=== PATIENT | female | born 1985 | race Caucasian/White ===

== ENCOUNTER 2016-04-11 15:21 | Emergency (ER) | payer MEDICAID ==
[2016-04-11 16:44] LABS: ALBUMIN 3.2 g/dL (3.4-5.0); ALKALINE PHOSPHATASE 58 U/L (46-116); ALT (SGPT) 16 U/L (10-68); BILIRUBIN - TOTAL 0.94 mg/dL (0.2-1.3); CALC OSMOLALITY 278 mosm/kg (275-300); CALCIUM 8.9 mg/dL (8.5-10.1); CARBON DIOXIDE 24.6 mmol/L (21.0-32.0); CHLORIDE - SERUM 105 mmol/L (98-107); CREATININE - SERUM 0.8 mg/dL (0.6-1.3); GLUCOSE 81 mg/dL (74-106); POTASSIUM - SERUM 3.2 mmol/L (3.5-5.1); PROTEIN - SERUM 6.8 g/dL (6.4-8.2); SODIUM 141 mmol/L (136-145); UREA NITROGEN 11 mg/dL (7-18); eGFR NON AFRICAN AMERICAN 90 mL/min (90-120)
[2016-04-11 17:07] LABS: UDS - AMPHET POSITIVE QUAL (NEGATIVE); UDS - BARB NEGATIVE QUAL (NEGATIVE); UDS - BENZO POSITIVE QUAL (NEGATIVE); UDS - COCAINE POSITIVE QUAL (NEGATIVE); UDS - METH NEGATIVE QUAL (NEGATIVE); UDS - OPIATE NEGATIVE QUAL (NEGATIVE); UDS - PCP NEGATIVE QUAL (NEGATIVE); UDS - THC POSITIVE QUAL (NEGATIVE)
[2016-04-12 05:49] LABS: BASOPHILS 0.6 % (0.0-2.0); EOSINOPHILS 2.9 % (0-7); HEMATOCRIT 33.6 % (36.0-48.0); HEMOGLOBIN 10.2 g/dL (12-16); IMMATURE GRANULOCYTES 0.3 % (0-5); LYMPHOCYTES 27.4 % (15-50); MCH 26.8 pg (26.0-34.0); MCHC 30.4 g/dL (31.0-37.0); MCV 88.4 fL (80.0-100.0); MEAN PLATELET VOLUME 10.1 fL (7.4-10.4); MONOCYTES 13.8 % (2-11); RDW 14.9 % (11.5-14.5); WBC 3.4 10x3/uL (4.8-10.8)
[2016-04-12 05:53] LABS: PLATELET COUNT 230 10x3/uL (130-400)
[2016-04-12 06:00] LABS: HCG SERUM NEGATIVE (NEGATIVE)
== END 2016-04-12 06:40 | disposition home or self-care (01) ==
LOC: D.ER 15:21
PROVIDERS: Emergency Medicine; Physician Assistant Medical
DX: F41.9 Anxiety disorder, unspecified (principal); F15.10 Other stimulant abuse, uncomplicated; F14.10 Cocaine abuse, uncomplicated; F12.19 Cannabis abuse with unspecified cannabis-induced disorder; F13.10 Sedative, hypnotic or anxiolytic abuse, uncomplicated

== ENCOUNTER 2016-04-28 14:25 | Emergency (ER) | payer MEDICAID ==
[2016-04-28 15:19] LABS: HCG URINE NEGATIVE (NEGATIVE)
[2016-04-28 15:20] LABS: BASOPHILS 0.3 % (0.0-2.0); EOSINOPHILS 0.4 % (0-7); HEMATOCRIT 34.2 % (36.0-48.0); HEMOGLOBIN 11.2 g/dL (12-16); IMMATURE GRANULOCYTES 0.1 % (0-5); LYMPHOCYTES 14.4 % (15-50); MCH 27.1 pg (26.0-34.0); MCHC 32.7 g/dL (31.0-37.0); MCV 82.6 fL (80.0-100.0); MEAN PLATELET VOLUME 10.1 fL (7.4-10.4); MONOCYTES 6.5 % (2-11); NEUTROPHILS 78.3 % (40-80); PLATELET COUNT 187 10x3/uL (130-400); RBC 4.14 10x6/uL (4.00-5.40); RDW 13.9 % (11.5-14.5); WBC 7.2 10x3/uL (4.8-10.8)
[2016-04-28 15:20] LABS: APPEARANCE CLEAR (CLEAR); BILIRUBIN NEGATIVE (NEGATIVE); COLOR YELLOW (YELLOW); GLUCOSE NEGATIVE (NEGATIVE); KETONE NEGATIVE (NEGATIVE); LEUKOCYTE ESTERASE TRACE (NEGATIVE); NITRITE NEGATIVE (NEGATIVE); PROTEIN TRACE mg/dL (NEGATIVE); UROBILINOGEN NORMAL (NORMAL)
[2016-04-28 15:23] LABS: BACTERIA FEW /hpf (NONE SEEN); EPITHELIAL CELLS 0-5 /hpf (0-5); GRANULAR CAST RARE /lpf (NONE SEEN); HYALINE CAST OCC /lpf (NONE SEEN); MUCUS <1+ /lpf (NONE SEEN); RED CELLS - URINE OCC /hpf (0-5); WHITE CELLS - URINE 0-5 /hpf (0-5)
[2016-04-28 15:31] LABS: ALBUMIN 3.9 g/dL (3.4-5.0); ALKALINE PHOSPHATASE 71 U/L (46-116); ALT (SGPT) 19 U/L (10-68); BILIRUBIN - TOTAL 0.98 mg/dL (0.2-1.3); CALC OSMOLALITY 289 mosm/kg (275-300); CALCIUM 9.1 mg/dL (8.5-10.1); CARBON DIOXIDE 23.9 mmol/L (21.0-32.0); CHLORIDE - SERUM 107 mmol/L (98-107); CREATININE - SERUM 0.8 mg/dL (0.6-1.3); GLUCOSE 83 mg/dL (74-106); POTASSIUM - SERUM 3.6 mmol/L (3.5-5.1); PROTEIN - SERUM 7.3 g/dL (6.4-8.2); SODIUM 144 mmol/L (136-145); UREA NITROGEN 23 mg/dL (7-18); eGFR NON AFRICAN AMERICAN 90 mL/min (90-120)
[2016-04-28 15:32] LABS: UDS - AMPHET POSITIVE QUAL (NEGATIVE); UDS - BARB NEGATIVE QUAL (NEGATIVE); UDS - BENZO NEGATIVE QUAL (NEGATIVE); UDS - COCAINE POSITIVE QUAL (NEGATIVE); UDS - METH NEGATIVE QUAL (NEGATIVE); UDS - OPIATE NEGATIVE QUAL (NEGATIVE); UDS - PCP NEGATIVE QUAL (NEGATIVE); UDS - THC POSITIVE QUAL (NEGATIVE)
== END 2016-04-29 01:20 | disposition short-term general hospital (02) ==
LOC: D.ER 14:25
PROVIDERS: Family Medicine
DX: F33.9 Major depressive disorder, recurrent, unspecified (principal); R45.851 Suicidal ideations; F15.10 Other stimulant abuse, uncomplicated; F14.10 Cocaine abuse, uncomplicated; F12.10 Cannabis abuse, uncomplicated

== ENCOUNTER 2016-05-05 15:39 | Emergency (ER) | payer MEDICAID ==
[2016-05-05 16:31] LABS: ALBUMIN 4.2 g/dL (3.4-5.0); ALKALINE PHOSPHATASE 68 U/L (46-116); ALT (SGPT) 22 U/L (10-68); BILIRUBIN - TOTAL 1.33 mg/dL (0.2-1.3); CALC OSMOLALITY 280 mosm/kg (275-300); CALCIUM 9.1 mg/dL (8.5-10.1); CARBON DIOXIDE 29.9 mmol/L (21.0-32.0); CHLORIDE - SERUM 102 mmol/L (98-107); CREATININE - SERUM 0.9 mg/dL (0.6-1.3); GLUCOSE 83 mg/dL (74-106); PROTEIN - SERUM 8.3 g/dL (6.4-8.2); SODIUM 141 mmol/L (136-145); UREA NITROGEN 16 mg/dL (7-18); eGFR NON AFRICAN AMERICAN 79 mL/min (90-120)
== END 2016-05-05 21:19 | disposition home or self-care (01) ==
LOC: D.ER 15:39
PROVIDERS: Emergency Medicine
DX: F41.9 Anxiety disorder, unspecified (principal); F23 Brief psychotic disorder; F14.10 Cocaine abuse, uncomplicated; F15.10 Other stimulant abuse, uncomplicated; F11.10 Opioid abuse, uncomplicated; F12.10 Cannabis abuse, uncomplicated; F32.9 Major depressive disorder, single episode, unspecified

== ENCOUNTER 2016-08-10 18:07 | Emergency (ER) | payer MEDICAID ==
[2016-08-10 19:14] LABS: EOSINOPHILS 1.7 % (0-7); HEMATOCRIT 36.3 % (36.0-48.0); HEMOGLOBIN 11.8 g/dL (12-16); IMMATURE GRANULOCYTES 0.2 % (0-5); LYMPHOCYTES 31.9 % (15-50); MCH 26.5 pg (26.0-34.0); MCHC 32.5 g/dL (31.0-37.0); MCV 81.6 fL (80.0-100.0); MEAN PLATELET VOLUME 9.3 fL (7.4-10.4); NEUTROPHILS 53.2 % (40-80); PLATELET COUNT 200 10x3/uL (130-400); RBC 4.45 10x6/uL (4.00-5.40); RDW 15.1 % (11.5-14.5); WBC 5.8 10x3/uL (4.8-10.8)
[2016-08-10 19:36] LABS: ALBUMIN 4.4 g/dL (3.4-5.0); ALKALINE PHOSPHATASE 69 U/L (46-116); ALT (SGPT) 23 U/L (10-68); BILIRUBIN - TOTAL 2.11 mg/dL (0.2-1.3); CALC OSMOLALITY 274 mosm/kg (275-300); CALCIUM 9.5 mg/dL (8.5-10.1); CARBON DIOXIDE 25.7 mmol/L (21.0-32.0); CHLORIDE - SERUM 101 mmol/L (98-107); CREATININE - SERUM 0.8 mg/dL (0.6-1.3); GLUCOSE 79 mg/dL (74-106); POTASSIUM - SERUM 3.7 mmol/L (3.5-5.1); PROTEIN - SERUM 8.1 g/dL (6.4-8.2); SODIUM 138 mmol/L (136-145); UREA NITROGEN 12 mg/dL (7-18); eGFR NON AFRICAN AMERICAN 90 mL/min (90-120)
[2016-08-10 20:50] LABS: HCG SERUM NEGATIVE (NEGATIVE)
[2016-08-10 21:26] LABS: APPEARANCE CLEAR (CLEAR); COLOR YELLOW (YELLOW)
[2016-08-10 21:27] LABS: BILIRUBIN NEGATIVE (NEGATIVE); GLUCOSE NEGATIVE (NEGATIVE); KETONE NEGATIVE (NEGATIVE); LEUKOCYTE ESTERASE NEGATIVE (NEGATIVE); NITRITE NEGATIVE (NEGATIVE); PROTEIN NEGATIVE (NEGATIVE); SPECIFIC GRAVITY 1.015 (1.005-1.020); UDS - AMPHET POSITIVE QUAL (NEGATIVE); UDS - BARB NEGATIVE QUAL (NEGATIVE); UDS - BENZO NEGATIVE QUAL (NEGATIVE); UDS - COCAINE POSITIVE QUAL (NEGATIVE); UDS - METH NEGATIVE QUAL (NEGATIVE); UDS - OPIATE NEGATIVE QUAL (NEGATIVE); UDS - PCP NEGATIVE QUAL (NEGATIVE); UDS - THC POSITIVE QUAL (NEGATIVE); UROBILINOGEN NORMAL (NORMAL)
== END 2016-08-11 09:44 | disposition home or self-care (01) ==
LOC: D.ER 18:07
PROVIDERS: Emergency Medicine; Nurse Practitioner Acute Care
DX: F23 Brief psychotic disorder (principal); F15.10 Other stimulant abuse, uncomplicated; F12.10 Cannabis abuse, uncomplicated; F14.10 Cocaine abuse, uncomplicated

== ENCOUNTER 2016-10-26 09:45 | Emergency (ER) | payer MEDICAID ==
[2016-10-26 23:22] LABS: BASOPHILS 0.7 % (0-2); HEMATOCRIT 31.9 % (36.0-48.0); HEMOGLOBIN 10.5 g/dL (12-16); LYMPHOCYTES 37.5 % (15-50); MCHC 32.9 g/dL (31.0-37.0); MEAN PLATELET VOLUME 9.6 fL (7.4-10.4); MONOCYTES 12.7 % (2-11); NEUTROPHILS 46.1 % (40-80); PLATELET COUNT 167 10x3/uL (130-400); RBC 3.89 10x6/uL (4.00-5.40)
[2016-10-26 23:37] LABS: ALBUMIN 3.1 g/dL (3.4-5.0); ALKALINE PHOSPHATASE 58 U/L (46-116); ALT (SGPT) 17 U/L (10-68); CALC OSMOLALITY 282 mosm/kg (275-300); CALCIUM 8.4 mg/dL (8.5-10.1); CARBON DIOXIDE 25.3 mmol/L (21.0-32.0); CHLORIDE - SERUM 107 mmol/L (98-107); CREATININE - SERUM 0.7 mg/dL (0.6-1.3); GLUCOSE 82 mg/dL (74-106); POTASSIUM - SERUM 3.6 mmol/L (3.5-5.1); PROTEIN - SERUM 6.4 g/dL (6.4-8.2); SODIUM 143 mmol/L (136-145); UREA NITROGEN 10 mg/dL (7-18); eGFR NON AFRICAN AMERICAN > 90 mL/min (90-120)
[2016-10-27 00:27] LABS: HCG URINE NEGATIVE (NEGATIVE)
[2016-10-27 00:35] LABS: APPEARANCE CLEAR (CLEAR); BILIRUBIN NEGATIVE (NEGATIVE); COLOR DK YELLOW (YELLOW); GLUCOSE NEGATIVE (NEGATIVE); KETONE SMALL mg/dL (NEGATIVE); LEUKOCYTE ESTERASE 1+ (NEGATIVE); NITRITE NEGATIVE (NEGATIVE); PROTEIN TRACE mg/dL (NEGATIVE); SPECIFIC GRAVITY 1.025 (1.005-1.020); UROBILINOGEN NORMAL (NORMAL)
[2016-10-27 00:37] LABS: BACTERIA FEW /hpf (NONE SEEN); EPITHELIAL CELLS 0-5 /hpf (0-5); RED CELLS - URINE 0-5 /hpf (0-5)
[2016-10-27 00:40] LABS: UDS - AMPHET POSITIVE QUAL (NEGATIVE); UDS - BARB NEGATIVE QUAL (NEGATIVE); UDS - BENZO NEGATIVE QUAL (NEGATIVE); UDS - COCAINE NEGATIVE QUAL (NEGATIVE); UDS - METH NEGATIVE QUAL (NEGATIVE); UDS - OPIATE NEGATIVE QUAL (NEGATIVE); UDS - PCP NEGATIVE QUAL (NEGATIVE); UDS - THC POSITIVE QUAL (NEGATIVE)
== END 2016-10-27 09:45 | disposition home or self-care (01) ==
LOC: D.ER 09:45
PROVIDERS: Nurse Practitioner Family
DX: F15.10 Other stimulant abuse, uncomplicated (principal); R41.82 Altered mental status, unspecified; F22 Delusional disorders

== ENCOUNTER 2017-04-15 02:43 | Emergency (ER) | payer MEDICAID ==
[2017-04-15 03:01] LABS: BASOPHILS 0.3 % (0-2); EOSINOPHILS 1.2 % (0-7); HEMATOCRIT 33.9 % (36.0-48.0); HEMOGLOBIN 10.9 g/dL (12-16); LYMPHOCYTES 22.1 % (15-50); MCH 27.3 pg (26.0-34.0); MCHC 32.2 g/dL (31.0-37.0); MEAN PLATELET VOLUME 9.7 fL (7.4-10.4); MONOCYTES 15.3 % (2-11); NEUTROPHILS 61.1 % (40-80); PLATELET COUNT 203 10x3/uL (130-400); RBC 3.99 10x6/uL (4.00-5.40); RDW 14.3 % (11.5-14.5)
[2017-04-15 03:13] LABS: HCG SERUM NEGATIVE (NEGATIVE)
[2017-04-15 03:15] LABS: ALBUMIN 4.2 g/dL (3.4-5.0); ALKALINE PHOSPHATASE 73 U/L (46-116); ALT (SGPT) 18 U/L (10-68); BILIRUBIN - TOTAL 1.47 mg/dL (0.2-1.3); CALC OSMOLALITY 286 mosm/kg (275-300); CALCIUM 9.1 mg/dL (8.5-10.1); CARBON DIOXIDE 27.9 mmol/L (21.0-32.0); CHLORIDE - SERUM 104 mmol/L (98-107); CREATININE - SERUM 0.7 mg/dL (0.6-1.3); GLUCOSE 90 mg/dL (74-106); POTASSIUM - SERUM 3.6 mmol/L (3.5-5.1); SODIUM 142 mmol/L (136-145); UREA NITROGEN 23 mg/dL (7-18); eGFR NON AFRICAN AMERICAN > 90 mL/min (90-120)
[2017-04-15 04:06] LABS: APPEARANCE HAZY (CLEAR); BILIRUBIN NEGATIVE (NEGATIVE); COLOR YELLOW (YELLOW); GLUCOSE NEGATIVE (NEGATIVE); KETONE SMALL mg/dL (NEGATIVE); NITRITE NEGATIVE (NEGATIVE); PROTEIN NEGATIVE (NEGATIVE); SPECIFIC GRAVITY 1.025 (1.005-1.020); UROBILINOGEN NORMAL (NORMAL)
[2017-04-15 04:10] LABS: UDS - AMPHET POSITIVE QUAL (NEGATIVE); UDS - BARB NEGATIVE QUAL (NEGATIVE); UDS - BENZO NEGATIVE QUAL (NEGATIVE); UDS - COCAINE NEGATIVE QUAL (NEGATIVE); UDS - OPIATE NEGATIVE QUAL (NEGATIVE); UDS - PCP NEGATIVE QUAL (NEGATIVE); UDS - THC POSITIVE QUAL (NEGATIVE)
== END 2017-04-15 11:00 | disposition home or self-care (01) ==
LOC: D.ER 02:43
PROVIDERS: Emergency Medicine
DX: F15.159 Other stimulant abuse with stimulant-induced psychotic disorder, unspecified (principal); F17.200 Nicotine dependence, unspecified, uncomplicated

== ENCOUNTER 2017-11-09 16:51 | Emergency (ER) | payer MEDICAID ==
[~2017-11-09] VITALS: Ht 162.6 cm; Wt 68.2 kg
[2017-11-09 17:41] VITALS: Ht 162.6 cm; Wt 68.2 kg
[2017-11-09 20:14] VITALS: BP 103/56
== END 2017-11-09 20:04 | disposition home or self-care (01) ==
LOC: D.ER 16:51
DX: Z03.89 Encounter for observation for other suspected diseases and conditions ruled out (principal)

== ENCOUNTER 2018-01-03 18:41 | Emergency (ER) | payer MEDICAID ==
[~2018-01-03] VITALS: Ht 162.6 cm; Wt 65.9 kg
[2018-01-03 18:42] VITALS: Ht 162.6 cm; Wt 65.9 kg
[2018-01-03 19:13] LABS: BASOPHILS 0.2 % (0-2); EOSINOPHILS 0.5 % (0-7); HEMATOCRIT 31.8 % (36.0-48.0); HEMOGLOBIN 10.3 g/dL (12-16); IMMATURE GRANULOCYTES 0.2 % (0-5); LYMPHOCYTES 7.5 % (15-50); MCH 25.9 pg (26.0-34.0); MCHC 32.4 g/dL (31.0-37.0); MCV 80.1 fL (80.0-100.0); MEAN PLATELET VOLUME 9.3 fL (7.4-10.4); MONOCYTES 6.8 % (2-11); NEUTROPHILS 84.8 % (40-80); PLATELET COUNT 204 10x3/uL (130-400); RBC 3.97 10x6/uL (4.00-5.40); RDW 14.8 % (11.5-14.5); WBC 10.4 10x3/uL (4.8-10.8)
[2018-01-03 19:28] LABS: ALBUMIN 3.7 g/dL (3.4-5.0); ALKALINE PHOSPHATASE 57 U/L (46-116); ALT (SGPT) 25 U/L (10-68); BILIRUBIN - TOTAL 1.37 mg/dL (0.2-1.3); CALC OSMOLALITY 278 mosm/kg (275-300); CALCIUM 8.7 mg/dL (8.5-10.1); CHLORIDE - SERUM 103 mmol/L (98-107); POTASSIUM - SERUM 3.7 mmol/L (3.5-5.1); PROTEIN - SERUM 7.1 g/dL (6.4-8.2); SODIUM 140 mmol/L (136-145); UREA NITROGEN 18 mg/dL (7-18); eGFR NON AFRICAN AMERICAN 69 mL/min (90-120)
[2018-01-03 19:30] LABS: GLUCOSE 63 mg/dL (74-106)
[2018-01-03 19:49] LABS: CREATINE KINASE 526 UL (21-215); LIPASE 75 U/L (73-393); MAGNESIUM - SERUM 1.6 mg/dL (1.8-2.4)
[2018-01-03 19:51] LABS: CKMB 10.4 U/L (0.0-3.6)
[2018-01-03 20:11] LABS: HCG URINE NEGATIVE (NEGATIVE)
[2018-01-03 20:12] LABS: APPEARANCE CLEAR (CLEAR); BILIRUBIN NEGATIVE (NEGATIVE); COLOR YELLOW (YELLOW); GLUCOSE NEGATIVE (NEGATIVE); KETONE SMALL mg/dL (NEGATIVE); NITRITE NEGATIVE (NEGATIVE); PROTEIN NEGATIVE (NEGATIVE); SPECIFIC GRAVITY 1.025 (1.005-1.020); UROBILINOGEN NORMAL (NORMAL)
[2018-01-03 20:13] LABS: BACTERIA NONE SEEN /hpf (NONE SEEN); EPITHELIAL CELLS NSEEN /hpf (0-5); RED CELLS - URINE NONE SEEN /hpf (0-5); WHITE CELLS - URINE NSEEN /hpf (0-5)
[2018-01-03 20:18] LABS: UDS - AMPHET POSITIVE QUAL (NEGATIVE); UDS - BARB NEGATIVE QUAL (NEGATIVE); UDS - BENZO POSITIVE QUAL (NEGATIVE); UDS - COCAINE POSITIVE QUAL (NEGATIVE); UDS - OPIATE POSITIVE QUAL (NEGATIVE); UDS - PCP NEGATIVE QUAL (NEGATIVE); UDS - THC POSITIVE QUAL (NEGATIVE)
[2018-01-04 06:10] VITALS: BP 90/47
== END 2018-01-04 06:11 | disposition home or self-care (01) ==
LOC: D.ER 18:41
PROVIDERS: Family Medicine
DX: R41.82 Altered mental status, unspecified (principal); D64.9 Anemia, unspecified; E83.42 Hypomagnesemia; F19.10 Other psychoactive substance abuse, uncomplicated

== ENCOUNTER 2019-01-10 01:44 | Emergency (ER) | payer MEDICAID ==
[~2019-01-10] VITALS: Ht 162.6 cm; Wt 52.3 kg
[2019-01-10 01:51] VITALS: Ht 162.6 cm; Wt 52.3 kg
[2019-01-10 01:58] LABS: BASOPHILS 0.2 % (0-2); EOSINOPHILS 0.1 % (0-7); HEMATOCRIT 35.4 % (36.0-48.0); HEMOGLOBIN 11.7 g/dL (12-16); IMMATURE GRANULOCYTES 0.1 % (0-5); LYMPHOCYTES 6.7 % (15-50); MCH 27.2 pg (26.0-34.0); MCHC 33.1 g/dL (31.0-37.0); MCV 82.3 fL (80.0-100.0); MEAN PLATELET VOLUME 9.5 fL (7.4-10.4); NEUTROPHILS 89.9 % (40-80); RDW 15.1 % (11.5-14.5); WBC 10.3 10x3/uL (4.8-10.8)
[2019-01-10 01:59] LABS: PLATELET COUNT 289 10x3/uL (130-400)
[2019-01-10 02:11] LABS: ANION GAP 17.6 mmol/L (8-16); CALCIUM 9.2 mg/dL (8.5-10.1); CARBON DIOXIDE 24.9 mmol/L (21.0-32.0); CREATININE - SERUM 1.4 mg/dL (0.6-1.3); POTASSIUM - SERUM 3.5 mmol/L (3.5-5.1)
[2019-01-10 02:18] LABS: ALBUMIN 4.1 g/dL (3.4-5.0); BILIRUBIN - TOTAL 1.4 mg/dL (0.2-1.3); MAGNESIUM - SERUM 1.6 mg/dL (1.8-2.4); PROTEIN - SERUM 8.1 g/dL (6.4-8.2)
[2019-01-10 10:28] VITALS: BP 140/98
[2019-02-25 07:59] VITALS: Ht 162.6 cm; Wt 52.3 kg
== END 2019-01-10 10:29 | disposition home or self-care (01) ==
LOC: D.ER 01:44
PROVIDERS: Family Medicine
DX: F15.929 Other stimulant use, unspecified with intoxication, unspecified (principal)

== ENCOUNTER 2019-02-24 20:25 | Observation (INO) | payer MEDICAID ==
[~2019-02-24] VITALS: Ht 162.6 cm; Wt 59.1 kg
[2019-02-24 20:44] LABS: BASOPHILS 0.5 % (0-2); EOSINOPHILS 1.3 % (0-7); HEMATOCRIT 31.4 % (36.0-48.0); HEMOGLOBIN 10.1 g/dL (12-16); IMMATURE GRANULOCYTES 0.2 % (0-5); LYMPHOCYTES 22.5 % (15-50); MCHC 32.2 g/dL (31.0-37.0); MCV 80.9 fL (80.0-100.0); MEAN PLATELET VOLUME 8.8 fL (7.4-10.4); NEUTROPHILS 68.5 % (40-80); PLATELET COUNT 275 10x3/uL (130-400); RBC 3.88 10x6/uL (4.00-5.40); RDW 15.6 % (11.5-14.5)
[2019-02-24 20:46] LABS: APPEARANCE SL CLDY (CLEAR); BILIRUBIN NEGATIVE (NEGATIVE); COLOR YELLOW (YELLOW); GLUCOSE NEGATIVE (NEGATIVE); KETONE NEGATIVE (NEGATIVE); NITRITE NEGATIVE (NEGATIVE); PROTEIN 1+ mg/dL (NEGATIVE); UROBILINOGEN NORMAL (NORMAL)
[2019-02-24 20:48] LABS: BACTERIA MODERATE /hpf (NEGATIVE); EPITHELIAL CELLS 0-5 /hpf (0-5); RED CELLS - URINE 0-5 /hpf (0-5); WHITE CELLS - URINE >50 /hpf (NEGATIVE)
[2019-02-24 20:49] LABS: HCG URINE NEGATIVE (NEGATIVE)
[2019-02-24 20:54] LABS: CALC OSMOLALITY 283 mosm/kg (275-300); CALCIUM 9.3 mg/dL (8.5-10.1); CHLORIDE - SERUM 104 mmol/L (98-107); CREATININE - SERUM 0.9 mg/dL (0.6-1.3); GLUCOSE 85 mg/dL (74-106); POTASSIUM - SERUM 3.2 mmol/L (3.5-5.1); SODIUM 141 mmol/L (136-145); UREA NITROGEN 25 mg/dL (7-18); eGFR NON AFRICAN AMERICAN 77 mL/min (90-120)
[2019-02-24 20:58] LABS: ALBUMIN 3.9 g/dL (3.4-5.0); ALKALINE PHOSPHATASE 68 U/L (46-116); ALT (SGPT) 22 U/L (10-68); BILIRUBIN - TOTAL 1.35 mg/dL (0.2-1.3); PROTEIN - SERUM 7.7 g/dL (6.4-8.2)
[2019-02-24 20:59] LABS: UDS - AMPHET POSITIVE QUAL (NEGATIVE); UDS - BARB NEGATIVE QUAL (NEGATIVE); UDS - BENZO NEGATIVE QUAL (NEGATIVE); UDS - COCAINE NEGATIVE QUAL (NEGATIVE); UDS - OPIATE NEGATIVE QUAL (NEGATIVE); UDS - PCP NEGATIVE QUAL (NEGATIVE); UDS - THC POSITIVE QUAL (NEGATIVE)
--- NOTE | 2019-02-24 22:20 | NUR ---
RECEIVED PATIENT TO ICU ROOM 2304 FROM ED VIA BED ACCOMPANIED BY [facility] STAFF. ASSISTED TO ICU BED. ASSESSMENT COMPLETED AT THIS TIME WITH NO ACUTE DISTRESS OBSERVED. PATIENT SEDATED. ROUSES TO TACTILE STIMULI. DISORIENTEDX 4. SPEECH GARBLED/SLURRED ANSWERING QUESTIONS INAPPROPRIATELY. MONITORS CONNECTED TO PATIENT WITH ALARMS SET. VSS. BED ALARM TURNED ON AND FUNCTIONING.
[2019-02-24 22:30] VITALS: BP 99/51
[2019-02-24 23:00] VITALS: BP 98/61
--- NOTE | 2019-02-24 23:00 | NUR ---
UNABLE TO PERFORM SRS SCREENING DUE TO PATIENTS ALTERED MENTAL STATUS AT THIS TIME.
[2019-02-25] VITALS (11 sets, daily range): BP systolic 86–108; BP diastolic 51–74; Ht 162.6 cm; Wt 59.1 kg
--- NOTE | 2019-02-25 | NUR ---
PATIENT RESTING WITH EYES CLOSED, ROUSES TO TACTILE STIMULI. VSS
--- NOTE | 2019-02-25 02:20 | NUR ---
BED ALARM SOUNDING. PT UP OUT OF BED. MORE ALERT. STAND BY ASSIST REQUIRED. USED BEDSIDE COMMODE. PO FLUIDS GIVEN PER PT REQUEST. ORIENTED ONLY TO SELF AT THIS TIME. VSS. ASSISSTED BACK TO BED. BED ALARM TURNED ON.
--- NOTE | 2019-02-25 03:00 | NUR ---
REASSESSMENT COMPLETED PER FLOW SHEET WITH NO ACUTE DISTRESS OBSERVED. VSS
--- NOTE | 2019-02-25 05:00 | NUR ---
RESTING WITH EYES CLOSED, ROUSES TO VERBAL/TACTILE STIMULI. VSS
--- NOTE | 2019-02-25 13:46 | NUR ---
0830-PT AWAKE AND ASSISTED PT WITH BREAKFEST TRAY-GREATER THAN MODERATE AGITATION-STATES TIRED NEED TO SLEEP-ENCOURAGED TO DO SAME-NOTED SR ON MONITOR 1000-PT ASLEEP RESPIRATION EVEN 1230-DR HAMPTON AT BEDSIDE AND SPOKE WITH PT-STATED ABLE TO DISCHARGE-PT STATED STATED TO SLEEPY-LUNCH TRAY TAKEN-L PERIPHERAL IV D/C'D-LUNCH TRAY TAKEN- 1300-REMAINS ON MONITOR SR SLEEPING
--- NOTE | 2019-02-25 15:50 | NUR ---
PREFERRED PHARMACY CONFIRMED BY PT DICKSON KUMAR JESSIEJESSICA.
[2019-02-25] MEDS ORDERED: BACTRIM 400-801 TAB PO (16:00)
--- NOTE | 2019-02-25 16:03 | NUR ---
NOTED ORDERS TO TRANSFER PT HOME AT THIS TIME PER DR HAMPTON.
--- NOTE | 2019-02-25 17:48 | NUR ---
1715-PT REAWAAKENED IN ROOM AND REMINDED DISCHARGE-MADE NO EFFORT TO CALL FOR RIDE-CASE MANAGEMENT KANA NOTIFIED -UP TO TALK WITH PT REGARDING OPTIONS-PT NOT WILLING -DINNER TRAY TAKEN-NURSING SENIOR LOGISTICS MANAGER NOTIFED OF ISSUE-PT STATES HOMELESS-DIRECTED TO PROVIDE LIST OF HOMELESS ALF-ESCORTED PT TO ER ADMISSION DESK -[facility] CALLED FOR PT AND LIST GIVEN-
== END 2019-02-25 17:53 | disposition home or self-care (01) ==
LOC: D.ER 20:25 → D.ICU 20:51 → D.ER 20:51 → OBSVTIME 20:51 → D.ICU 02-25 17:53 → OBSVTIME 02-25 20:51
PROVIDERS: Emergency Medicine; ADMIT Internal Medicine Nephrology; ATTEND Internal Medicine Nephrology
DX: G92 Toxic encephalopathy (principal); F15.90 Other stimulant use, unspecified, uncomplicated; N39.0 Urinary tract infection, site not specified; N17.9 Acute kidney failure, unspecified; D50.9 Iron deficiency anemia, unspecified; F17.203 Nicotine dependence unspecified, with withdrawal; E87.6 Hypokalemia

== ENCOUNTER 2019-07-02 16:50 | Emergency (ER) | payer MEDICAID ==
[~2019-07-02] VITALS: Ht 162.6 cm; Wt 63.6 kg
[~2019-07-02 16:50] MED LIST: BACTRIM 400-801 TAB PO
[2019-07-02 17:01] VITALS: Ht 162.6 cm; Wt 63.6 kg
[2019-07-02 17:53] LABS: EOSINOPHILS 4.3 % (0-7); HEMATOCRIT 39.2 % (36.0-48.0); HEMOGLOBIN 12.6 g/dL (12-16); IMMATURE GRANULOCYTES 0.1 % (0-5); LYMPHOCYTES 28.1 % (15-50); MCH 27.3 pg (26.0-34.0); MCHC 32.1 g/dL (31.0-37.0); MEAN PLATELET VOLUME 9.7 fL (7.4-10.4); MONOCYTES 10.2 % (2-11); NEUTROPHILS 56.3 % (40-80); PLATELET COUNT 303 10x3/uL (130-400); RBC 4.61 10x6/uL (4.00-5.40); RDW 16.9 % (11.5-14.5); WBC 6.8 10x3/uL (4.8-10.8)
[2019-07-02 18:00] LABS: ANION GAP 14.8 mmol/L (8-16); CALCIUM 9.3 mg/dL (8.5-10.1); CARBON DIOXIDE 27.9 mmol/L (21.0-32.0); POTASSIUM - SERUM 3.7 mmol/L (3.5-5.1)
[2019-07-02 18:01] LABS: UDS - AMPHET POSITIVE QUAL (NEGATIVE); UDS - BARB NEGATIVE QUAL (NEGATIVE); UDS - BENZO NEGATIVE QUAL (NEGATIVE); UDS - COCAINE NEGATIVE QUAL (NEGATIVE); UDS - OPIATE NEGATIVE QUAL (NEGATIVE); UDS - PCP NEGATIVE QUAL (NEGATIVE); UDS - THC NEGATIVE QUAL (NEGATIVE)
[2019-07-02 18:13] LABS: ACETAMINOPHEN 62.9 ug/mL (10.0-30.0); ALBUMIN 4.4 g/dL (3.4-5.0); BILIRUBIN - TOTAL 0.63 mg/dL (0.2-1.3); MAGNESIUM - SERUM 2.2 mg/dL (1.8-2.4); PROTEIN - SERUM 8.8 g/dL (6.4-8.2)
[2019-07-02 18:19] LABS: HCG URINE NEGATIVE (NEGATIVE)
[2019-07-02 18:19] LABS: BILIRUBIN NEGATIVE (NEGATIVE); GLUCOSE NEGATIVE (NEGATIVE); KETONE NEGATIVE (NEGATIVE); NITRITE NEGATIVE (NEGATIVE); SPECIFIC GRAVITY 1.025 (1.005-1.020); UROBILINOGEN NORMAL (NORMAL)
[2019-07-02 18:20] LABS: EPITHELIAL CELLS 0-5 /hpf (0-5); RED CELLS - URINE 0-5 /hpf (0-5); WHITE CELLS - URINE 0-5 /hpf (NEGATIVE)
[2019-07-02 18:21] LABS: BACTERIA MANY /hpf (NEGATIVE)
[2019-07-02 19:21] VITALS: BP 115/78
== END 2019-07-02 19:21 | disposition home or self-care (01) ==
LOC: D.ER 16:50
PROVIDERS: Family Medicine
DX: F41.9 Anxiety disorder, unspecified (principal); F15.10 Other stimulant abuse, uncomplicated; R44.0 Auditory hallucinations; R44.1 Visual hallucinations

== ENCOUNTER 2019-07-23 17:22 | Emergency (ER) | payer MEDICAID ==
[~2019-07-23] VITALS: Ht 162.6 cm; Wt 62.3 kg
[2019-07-23 17:48] VITALS: BP 150/70; Ht 162.6 cm; Wt 62.3 kg
== END 2019-07-23 20:07 | disposition left against medical advice (07) ==
LOC: D.ER 17:22
DX: R52 Pain, unspecified (principal)

== ENCOUNTER 2019-07-23 22:38 | Emergency (ER) | payer MEDICAID ==
[~2019-07-23] VITALS: Ht 162.6 cm; Wt 54.5 kg
[2019-07-23 23:19] VITALS: Ht 162.6 cm; Wt 54.5 kg
[2019-07-24 03:21] VITALS: BP 122/88
== END 2019-07-24 03:25 | disposition home or self-care (01) ==
LOC: D.ER 22:38
DX: M54.2 Cervicalgia (principal); S90.829A Blister (nonthermal), unspecified foot, initial encounter; F15.10 Other stimulant abuse, uncomplicated; S10.96XA Insect bite of unspecified part of neck, initial encounter; X58.XXXA Exposure to other specified factors, initial encounter

== ENCOUNTER 2019-09-03 19:56 | Observation (INO) | payer BC ==
[~2019-09-03] VITALS: Ht 162.6 cm; Wt 62.3 kg
[2019-09-03 21:30] LABS: BASOPHILS 0.6 % (0-2); EOSINOPHILS 1.9 % (0-7); HEMATOCRIT 40.2 % (36.0-48.0); HEMOGLOBIN 12.8 g/dL (12-16); IMMATURE GRANULOCYTES 0.2 % (0-5); LYMPHOCYTES 25.8 % (15-50); MCH 27.4 pg (26.0-34.0); MCHC 31.8 g/dL (31.0-37.0); MCV 86.1 fL (80.0-100.0); MEAN PLATELET VOLUME 9.7 fL (7.4-10.4); MONOCYTES 8.1 % (2-11); NEUTROPHILS 63.4 % (40-80); PLATELET COUNT 281 10x3/uL (130-400); RBC 4.67 10x6/uL (4.00-5.40); RDW 14.5 % (11.5-14.5); WBC 10.9 10x3/uL (4.8-10.8)
[2019-09-03 21:38] LABS: APTT 27.4 SECONDS (22.8-39.4); CALC OSMOLALITY 269 mosm/kg (275-300); CALCIUM 9.1 mg/dL (8.5-10.1); CARBON DIOXIDE 27.2 mmol/L (21.0-32.0); CHLORIDE - SERUM 101 mmol/L (98-107); CREATININE - SERUM 0.8 mg/dL (0.6-1.3); GLUCOSE 95 mg/dL (74-106); INR 0.95 (0.85-1.17); POTASSIUM - SERUM 3.8 mmol/L (3.5-5.1); PROTIME 12.6 SECONDS (11.6-15.0); SODIUM 136 mmol/L (136-145); UREA NITROGEN 6 mg/dL (7-18); eGFR NON AFRICAN AMERICAN 89 mL/min (90-120)
[2019-09-03 21:55] LABS: ALBUMIN 3.5 g/dL (3.4-5.0); ALKALINE PHOSPHATASE 60 U/L (30-120); ALT (SGPT) 24 U/L (10-68); BILIRUBIN - TOTAL 1.06 mg/dL (0.2-1.3); CKMB 0.9 U/L (0.0-3.6); CREATINE KINASE 106 UL (21-215); PRO BNP 117 pg/mL (0-125)
[2019-09-03 21:57] LABS: TROPONIN-I 0.016 ng/mL (0.000-0.060)
--- NOTE | 2019-09-03 22:05 | NUR ---
EDP AT BEDSIDE. PT UPDATED ON PLAN OF CARE.
--- NOTE | 2019-09-03 22:17 | NUR ---
RT AT BEDSIDE
[2019-09-03 23:42] VITALS: BP 114/76
[2019-09-04 00:54] VITALS: BP 116/56
[2019-09-04 02:27] VITALS: BP 113/59; Ht 162.6 cm; Wt 62.3 kg
[2019-09-04 04:00] VITALS: BP 113/59
[2019-09-04 05:10] LABS: BASOPHILS 0.1 % (0-2); EOSINOPHILS 0 % (0-7); HEMATOCRIT 39.6 % (36.0-48.0); HEMOGLOBIN 12.5 g/dL (12-16); LYMPHOCYTES 4.9 % (15-50); MCH 27.2 pg (26.0-34.0); MCHC 31.6 g/dL (31.0-37.0); MCV 86.1 fL (80.0-100.0); MEAN PLATELET VOLUME 9.7 fL (7.4-10.4); MONOCYTES 0.8 % (2-11); NEUTROPHILS 94.2 % (40-80); PLATELET COUNT 283 10x3/uL (130-400); RDW 14.4 % (11.5-14.5); WBC 8.5 10x3/uL (4.8-10.8)
[2019-09-04 05:36] LABS: ALBUMIN 3.4 g/dL (3.4-5.0); ALKALINE PHOSPHATASE 66 U/L (30-120); ALT (SGPT) 22 U/L (10-68); BILIRUBIN - TOTAL 0.78 mg/dL (0.2-1.3); CALCIUM 9.8 mg/dL (8.5-10.1); CARBON DIOXIDE 25.2 mmol/L (21.0-32.0); CHLORIDE - SERUM 102 mmol/L (98-107); CREATININE - SERUM 0.8 mg/dL (0.6-1.3); POTASSIUM - SERUM 4.1 mmol/L (3.5-5.1); PROTEIN - SERUM 8.3 g/dL (6.4-8.2); SODIUM 136 mmol/L (136-145); eGFR NON AFRICAN AMERICAN 89 mL/min (90-120)
[2019-09-04 05:37] LABS: CALC OSMOLALITY 273 mosm/kg (275-300); GLUCOSE 176 mg/dL (74-106); UREA NITROGEN 8 mg/dL (7-18)
--- NOTE | 2019-09-04 08:00 | NUR ---
ASSESSMENT PER FLOW SHEET. PATIENT IS WITHOUT DISTRESS. SHE REPORTS HER HEAD,CHEST AND NECK HURTS. SHE IS VERY SLEEPY.MONITOR FOR NEEDS.
[2019-09-04 09:30] VITALS: BP 97/59
--- NOTE | 2019-09-04 12:08 | NUR ---
HAS BEEN COUGHING MORE.GREENISH/CLEAR/BLACK SPUTUM. PATIENT HAS HAD SHOWER. WAITING ON PATIENT TO URINATE FOR LAB ORDERED.PATIENT WISHES FOR MED FOR ANXIETY.
[2019-09-04 15:55] LABS: UDS - AMPHET NEGATIVE QUAL (NEGATIVE); UDS - BARB NEGATIVE QUAL (NEGATIVE); UDS - BENZO NEGATIVE QUAL (NEGATIVE); UDS - COCAINE NEGATIVE QUAL (NEGATIVE); UDS - OPIATE POSITIVE QUAL (NEGATIVE); UDS - PCP NEGATIVE QUAL (NEGATIVE); UDS - THC POSITIVE QUAL (NEGATIVE)
--- NOTE | 2019-09-04 15:56 | NUR ---
PT WITH COMPLAINTS OF DISCOMFORT AND REQUESTS MEDICATION TO ASSIST WITH DISCOMFORT AND ANXIETY. DR JOSEPH ON FLOOR AND NOTIFIED OF PT REQUEST AND STATE. VERBAL ORDER RECD FOR ATIVAN 0.5MG IV Q6 HOURS PRN. ORDER PLACED PER DR JOSEPH REQUEST.
[2019-09-04 16:50] LABS: BILIRUBIN NEGATIVE (NEGATIVE); GLUCOSE 250 mg/dL (NEGATIVE); KETONE NEGATIVE (NEGATIVE); NITRITE NEGATIVE (NEGATIVE); UROBILINOGEN NORMAL (NORMAL)
[2019-09-04 16:51] LABS: HCG URINE NEGATIVE (NEGATIVE)
[2019-09-04 17:51] VITALS: BP 110/74
[2019-09-04 21:55] VITALS: BP 125/90
[2019-09-05] VITALS: BP 103/64
[2019-09-05 04:00] VITALS: BP 108/70
[2019-09-05 06:37] LABS: BASOPHILS 0.2 % (0-2); EOSINOPHILS 0.3 % (0-7); HEMATOCRIT 35.8 % (36.0-48.0); HEMOGLOBIN 11.4 g/dL (12-16); IMMATURE GRANULOCYTES 0.2 % (0-5); LYMPHOCYTES 26.4 % (15-50); MCH 27.1 pg (26.0-34.0); MCHC 31.8 g/dL (31.0-37.0); MEAN PLATELET VOLUME 9.5 fL (7.4-10.4); MONOCYTES 5.6 % (2-11); NEUTROPHILS 67.3 % (40-80); PLATELET COUNT 273 10x3/uL (130-400); RBC 4.21 10x6/uL (4.00-5.40); RDW 14.3 % (11.5-14.5); WBC 9.9 10x3/uL (4.8-10.8)
[2019-09-05 07:06] LABS: CALCIUM 8.3 mg/dL (8.5-10.1); CARBON DIOXIDE 25.2 mmol/L (21.0-32.0); CHLORIDE - SERUM 104 mmol/L (98-107); CREATININE - SERUM 0.8 mg/dL (0.6-1.3); MAGNESIUM - SERUM 1.9 mg/dL (1.8-2.4); PHOSPHOROUS 3.4 mg/dL (2.5-4.9); POTASSIUM - SERUM 3.5 mmol/L (3.5-5.1); SODIUM 138 mmol/L (136-145); eGFR NON AFRICAN AMERICAN 89 mL/min (90-120)
[2019-09-05 07:07] LABS: CALC OSMOLALITY 275 mosm/kg (275-300); GLUCOSE 103 mg/dL (74-106); UREA NITROGEN 13 mg/dL (7-18)
--- NOTE | 2019-09-05 07:33 | NUR ---
ALERT AND ORENTED ABLE TO VOICE NEEDS AND WANTS TO STAFF. TELEMETRY IN PLACE 89 SR. IV RESITED TO LEFT FORE ARM WITH NS AT 75 NO S/S OF DISTRESS. CALL LIGHT IN REACH
[2019-09-05 09:05] VITALS: BP 127/83
[2019-09-05] MEDS ORDERED: PROAIR HFA8.5 G1 INH (10:56)
[2019-09-05] MEDS ORDERED: ERYTHROMYCIN OPT1 GM EACH EYE (10:59)
[2019-09-05] MEDS ORDERED: AKWA TEARS15 ML EACH EYE (10:59)
[2019-09-05 12:34] VITALS: BP 118/79
--- NOTE | 2019-09-05 15:20 | NUR ---
DISCHARGE PAPERWORK SIGNED, ALL QUESTIONS ANSWERED. IV TO LEFT FOREARM DC'D, TIP INTACT. PT AMBULATED OUT.
== END 2019-09-05 15:21 | disposition home or self-care (01) ==
LOC: D.ER 19:56 → D.MS 22:20 → OBSVTIME 22:20 → D.MS 22:20
PROVIDERS: Family Medicine; Internal Medicine Pulmonary Disease; ADMIT Family Medicine; ATTEND Family Medicine
DX: J70.5 Respiratory conditions due to smoke inhalation (principal); R09.02 Hypoxemia; G93.41 Metabolic encephalopathy; F17.200 Nicotine dependence, unspecified, uncomplicated; F15.10 Other stimulant abuse, uncomplicated; H10.30 Unspecified acute conjunctivitis, unspecified eye